=== PATIENT | male | born 1970 | race Caucasian/White ===

== ENCOUNTER → 2020-05-15 | Outpatient (CLI) | payer OTHER ==
--- NOTE | 2020-05-15 11:59 | RAD ---
EXAMINATION: THYROID ULTRASOUND, 05/15/2020 10:00 AM CLINICAL INDICATION: Left thyroid nodule TECHNIQUE: Grayscale and color Doppler sonographic images of the thyroid are submitted for interpretation. COMPARISON: None. FINDINGS: The right thyroid lobe measures 3.6 x 1.9 x 1.7 cm. The left thyroid lobe measures 4.6 x 2.3 x 3.0 cm. Thyroid parenchyma is homogeneous. On the right, there is a 0.4 x 0.4 x 0.6 cm hypoechoic, predominantly solid nodule with smooth margins. This is wider than tall and has a few possible echogenic foci. This is a TI-RADS 5 nodule. On the left, there is a 3.2 x 2.1 x 2.3 cm isoechoic nodule solid nodule with smooth margins. This is wider than tall and has no echogenic foci. There is prominent vascularity within the nodule. This is a TI-RADS 3 nodule. IMPRESSION: 1. TI-RADS 3 left thyroid nodule measuring 3.2 cm. Recommend ultrasound-guided fine-needle aspiration based on size criteria. 2. TI-RADS 5 right thyroid nodule measuring 0.6 cm. Recommend ultrasound surveillance in 1 year based on size criteria. Fine-needle aspiration could be considered when the lesion measures greater than or equal to 1 cm. Electronically signed by: Dolores Schmitt MD (05/15/2020 11:56 AM) [id number]
== END ==
LOC: US 09:42
DX: E04.2 Nontoxic multinodular goiter (principal)
CPT/HCPCS: 76536

== ENCOUNTER → 2020-05-28 | Outpatient (CLI) | payer OTHER ==
--- NOTE | 2020-05-28 13:51 | RAD ---
3 views left knee without comparison for left knee pain. FINDINGS: There is no fracture, dislocation, or acute osseous abnormality. Joints and soft tissues are grossly unremarkable save for very mild patellofemoral osteoarthritis. IMPRESSION: 1. No acute osseous abnormality. Electronically signed by: Arash Monaco MD (05/28/2020 1:48 PM) [id number]
== END ==
LOC: DXRAD 13:27
PROVIDERS: ATTEND Physician Assistant
DX: M25.562 Pain in left knee (principal)
CPT/HCPCS: 73562